=== PATIENT | female | born 1940 | race Two or more races ===

== ENCOUNTER 2018-09-14 16:18 | Inpatient (IN) | payer MEDICARE, BC ==
[~2018-09-14] VITALS: Ht 152.4 cm; Wt 59.8 kg
--- NOTE | 2018-09-14 16:32 | NUR ---
DR AGUILAR AT BEDSIDE TO [facility] PT. 78 YR OLD FEMALE BROUGHT IN BY EMS WITH C/O 3 WEEK HX OF DECREASED APPETITE. OVER THE LAST 3 DAYS NOT EATING MUCH, FEELS LIKE GOING TO THROW UP, DIARRHEA AND FEELING WEAK. PER REPORT, PT WAS HYPOTENSIVE 80'S/60'S. PT RECEIVED 500 CC NS BOLUS WITH BP INC TO 118/78. BS 134. PT ARRIVED WITH 20G IN LAC.
--- NOTE | 2018-09-14 16:56 | NUR ---
report to [facility]
[2018-09-14 17:12] LABS: BASOPHILS # (AUTO) 0.01 x10^3/uL (0-0.1); BASOPHILS % (AUTO) 0 % (0-1); EOSINOPHILS # (AUTO) 0.02 x10^3/uL (0-0.4); EOSINOPHILS % (AUTO) 0 % (1-7); LYMPHOCYTES # (AUTO) 2.08 x10^3/uL (1-3.4); LYMPHOCYTES % (AUTO) 27 % (22-44); MD NO; MEAN CORPUSCULAR HEMOGLOBIN 29.6 pg (27.0-34.8); MEAN CORPUSCULAR HGB CONC 34.1 g/dL (32.4-35.8); MEAN CORPUSCULAR VOLUME 86.8 fL (80-100); MEAN PLATELET VOLUME 8.3 fL (7.4-10.4); MONOCYTES # (AUTO) 0.53 x10^3/uL (0.2-0.8); MONOCYTES % (AUTO) 7 % (2-9); NEUTROPHILS # (AUTO) 4.98 x10^3/uL (1.8-6.8); NEUTROPHILS % (AUTO) 65 % (42-75); PLATELET COUNT 249 x10^3/uL (130-400); RED BLOOD COUNT 4.17 x10^6/uL (3.82-5.3); RED CELL DISTRIBUTION WIDTH 13.8 % (9.6-15.2)
--- NOTE | 2018-09-14 17:20 | NUR ---
ORTHOSTATIC VITALS TAKEN. POSTIVE ORTHOSTATICS. AWARE.
[2018-09-14 17:21] LABS: INTERNATIONAL NORMALIZED RATIO 1.09 (0.93-1.1); PROTHROMBIN TIME 11.5 Seconds (9.6-11.5)
[2018-09-14 17:23] LABS: ALANINE AMINOTRANSFERASE 14 U/L (12-78); ALBUMIN 3.5 g/dL (3.4-5.0); ANION GAP 10 mmol/L (5-15); CALCIUM 8.2 mg/dL (8.5-10.1); CHLORIDE 112 mmol/L (98-107); CREATININE 2.53 mg/dL (0.55-1.02)
[2018-09-14] MEDS ORDERED: SODIUM CHLORIDE 0.9%, 500ML IVBOLUS ONE (17:30)
[2018-09-14 17:32] LABS: ALKALINE PHOSPHATASE 115 U/L (45-117); BILIRUBIN,TOTAL 0.5 mg/dL (0.2-1.0); TOTAL PROTEIN 7.4 g/dL (6.4-8.2)
[2018-09-14] MEDS ORDERED: ASPI-496 PO (17:45)
[2018-09-14] MEDS ORDERED: METFORMIN (17:45)
[2018-09-14] MEDS ORDERED: GABAPENTIN (17:45)
[2018-09-14] MEDS ORDERED: CELEBREX (17:45)
[2018-09-14] MEDS ORDERED: TYLENOL (17:45)
[2018-09-14] MEDS ORDERED: ROVASTATIN (17:45)
[2018-09-14 17:46] LABS: FREE T4 (FREE THYROXINE) 1.17 ng/dL (0.76-1.46)
[2018-09-14 18:24] LABS: TROPONIN I 0.124 ng/mL (0.000-0.045)
[2018-09-14] MEDS ORDERED: ASPIRIN 81 MG TABLET CHEW PO ONE (18:30)
--- NOTE | 2018-09-14 18:47 | NUR ---
PT IN BED WITH EYES CLOSED. RESP EVEN AND UNLABORED. ADMITTING MD ALREADY IN ROOM. AWAITING ROOM AT THIS TIME.
[2018-09-14] MEDS ORDERED: POLYETHYLENE GLYCOL 17 GM PACKET PO PRN (19:00)
[2018-09-14] MEDS ORDERED: morphine SULFATE 10 MG/ML, 1ML IVPush PRN (19:00)
[2018-09-14] MEDS ORDERED: NITROGLYCERIN 0.4 MG BOTTLE (25 TABS) SL PRN (19:00)
[2018-09-14] MEDS ORDERED: BISACODYL 10 MG SUPP PR PRN (19:00)
[2018-09-14 19:27] LABS: HEMOGLOBIN A1C 8.3 % (4.2-6.3)
[2018-09-14 20:13] VITALS: BP_SYST 119; BP_SYST 138; BP_SYST 96; BP_DIAS 60; BP_DIAS 69; BP_DIAS 72
[2018-09-14] MEDS: SODIUM CHLORIDE 0.9% 1,000 ML IV SCH (21:55)
[2018-09-14] MEDS: HEPARIN 5,000 UNITS/ML, 1ML SQ SCH (21:56)
[2018-09-14 22:40] LABS: CLOSTRIDIUM DIFFICILE ANTIGEN NEGATIVE; CLOSTRIDIUM DIFFICILE TOXIN NEGATIVE (Negative)
[2018-09-15 01:07] LABS: TROPONIN I 0.138 ng/mL (0.000-0.045)
[2018-09-15 01:55] VITALS: BP 112/62
[2018-09-15] MEDS: ASPIRIN 81 MG TABLET EC PO SCH (05:42)
[2018-09-15] MEDS: SODIUM CHLORIDE 0.9% 1,000 ML IV SCH ×3 (05:42→21:46)
[2018-09-15] MEDS: HEPARIN 5,000 UNITS/ML, 1ML SQ SCH ×3 (05:43→21:47)
[2018-09-15 06:53] VITALS: BP 112/65
[2018-09-15 07:02] LABS: BASOPHILS # (AUTO) 0.01 x10^3/uL (0-0.1); BASOPHILS % (AUTO) 0 % (0-1); EOSINOPHILS # (AUTO) 0.04 x10^3/uL (0-0.4); EOSINOPHILS % (AUTO) 1 % (1-7); LYMPHOCYTES # (AUTO) 1.82 x10^3/uL (1-3.4); LYMPHOCYTES % (AUTO) 27 % (22-44); MD NO; MEAN CORPUSCULAR HEMOGLOBIN 29.3 pg (27.0-34.8); MEAN CORPUSCULAR HGB CONC 33.6 g/dL (32.4-35.8); MEAN CORPUSCULAR VOLUME 87.1 fL (80-100); MEAN PLATELET VOLUME 8.5 fL (7.4-10.4); MONOCYTES # (AUTO) 0.43 x10^3/uL (0.2-0.8); MONOCYTES % (AUTO) 7 % (2-9); NEUTROPHILS # (AUTO) 4.34 x10^3/uL (1.8-6.8); NEUTROPHILS % (AUTO) 65 % (42-75); PLATELET COUNT 213 x10^3/uL (130-400); RED BLOOD COUNT 3.76 x10^6/uL (3.82-5.3); RED CELL DISTRIBUTION WIDTH 14.1 % (9.6-15.2)
[2018-09-15 07:11] LABS: ALANINE AMINOTRANSFERASE 11 U/L (12-78); ALBUMIN 2.9 g/dL (3.4-5.0); CALCIUM 7.6 mg/dL (8.5-10.1); CHOLESTEROL, TOTAL 93 mg/dL (140-239); CREATININE 2.28 mg/dL (0.55-1.02)
[2018-09-15 07:16] LABS: ALKALINE PHOSPHATASE 98 U/L (45-117); ANION GAP 9 mmol/L (5-15); BILIRUBIN,TOTAL 0.4 mg/dL (0.2-1.0); HDL CHOL % 33 % (28-40); HDL CHOLESTEROL (DIRECT) 31 mg/dL (40-60); LDL CHOLESTEROL,CALCULATED 20 mg/dL (54-169); LDL/HDL RATIO 0.6 (0.5-3.0); TOTAL PROTEIN 6.3 g/dL (6.4-8.2); TRIGLYCERIDES 210 mg/dL (50-200); TROPONIN I 0.126 ng/mL (0.000-0.045); VLDL CHOLESTEROL 42 mg/dL (0-25)
[2018-09-15 07:17] LABS: CHLORIDE 118 mmol/L (98-107)
[2018-09-15] MEDS: SENNA/DOCUSATE TABLET PO SCH (08:29)
[2018-09-15] MEDS ORDERED: HYDROcodone/APAP 5/325 TABLET ONE (11:57)
[2018-09-15] MEDS: HYDROcodone/APAP 5/325 TABLET PO PRN ×2 (11:58→18:44)
[2018-09-15 12:07] LABS: CHLORIDE,URINE RANDOM 122 mmol/L; POTASSIUM,URINE RANDOM 18 mmol/L; SODIUM,URINE RANDOM 103 mmol/L
[2018-09-15 12:12] LABS: MICROSCOPIC AUTO
[2018-09-15 12:13] LABS: CULTURE INDICATED? NO
[2018-09-15 12:20] VITALS: BP 134/74
[2018-09-15] MEDS ORDERED: DIPHENOXYLATE/ATROPINE TABLET PO ONE (16:30)
[2018-09-15 18:31] VITALS: BP 146/70
[2018-09-16 00:26] VITALS: BP 129/61
[2018-09-16] MEDS: ONDANSETRON ODT 4 MG PO PRN (04:27)
[2018-09-16 05:36] LABS: BASOPHILS % (AUTO) 0 % (0-1); EOSINOPHILS # (AUTO) 0.04 x10^3/uL (0-0.4); EOSINOPHILS % (AUTO) 1 % (1-7); LYMPHOCYTES # (AUTO) 1.25 x10^3/uL (1-3.4); LYMPHOCYTES % (AUTO) 17 % (22-44); MD NO; MEAN CORPUSCULAR HEMOGLOBIN 29.3 pg (27.0-34.8); MEAN CORPUSCULAR HGB CONC 33.5 g/dL (32.4-35.8); MEAN CORPUSCULAR VOLUME 87.4 fL (80-100); MEAN PLATELET VOLUME 8.8 fL (7.4-10.4); MONOCYTES # (AUTO) 0.45 x10^3/uL (0.2-0.8); MONOCYTES % (AUTO) 6 % (2-9); NEUTROPHILS # (AUTO) 5.55 x10^3/uL (1.8-6.8); NEUTROPHILS % (AUTO) 76 % (42-75); PLATELET COUNT 178 x10^3/uL (130-400); RED BLOOD COUNT 3.57 x10^6/uL (3.82-5.3); RED CELL DISTRIBUTION WIDTH 13.8 % (9.6-15.2)
[2018-09-16] MEDS: HEPARIN 5,000 UNITS/ML, 1ML SQ SCH ×2 (05:36→21:11)
[2018-09-16] MEDS: LEVOTHYROXINE 25 MCG TABLET PO SCH (05:36)
[2018-09-16] MEDS: ASPIRIN 81 MG TABLET EC PO SCH (05:36)
[2018-09-16] MEDS: METOPROLOL SUCCINATE 50 MG TAB.ER.24H PO SCH (05:37)
[2018-09-16] MEDS: SODIUM CHLORIDE 0.9% 1,000 ML IV SCH (05:44)
[2018-09-16 05:45] LABS: ANION GAP 8 mmol/L (5-15); CALCIUM 7.7 mg/dL (8.5-10.1); CHLORIDE 122 mmol/L (98-107); CREATININE 1.85 mg/dL (0.55-1.02)
[2018-09-16] MEDS ORDERED: METOPROLOL SUCCINATE 50 MG TAB.ER.24H PO SCH (06:00)
[2018-09-16 07:13] VITALS: BP 144/67
[2018-09-16] MEDS ORDERED: REGADENOSON 0.4 MG/5 ML SYRINGE ONE (08:09)
[2018-09-16] MEDS: SENNA/DOCUSATE TABLET PO SCH (10:01)
[2018-09-16] MEDS: ACETAMINOPHEN 325 MG TABLET PO PRN ×2 (11:09→21:12)
[2018-09-16 12:39] VITALS: BP 104/61
[2018-09-16] MEDS: SODIUM BICARBONATE 8.4% 100 MEQ in DEXTROSE 5% 1,000 ML IV SCH (16:06)
[2018-09-16 19:25] VITALS: BP 106/65
[2018-09-17 02:57] VITALS: BP 114/66
[2018-09-17] MEDS: SODIUM BICARBONATE 8.4% 100 MEQ in DEXTROSE 5% 1,000 ML IV SCH ×2 (02:57→15:09)
[2018-09-17] MEDS: ASPIRIN 81 MG TABLET EC PO SCH (05:11)
[2018-09-17] MEDS: ACETAMINOPHEN 325 MG TABLET PO PRN ×2 (05:11→20:32)
[2018-09-17] MEDS: LEVOTHYROXINE 25 MCG TABLET PO SCH (05:15)
[2018-09-17 06:02] VITALS: BP_SYST 120; BP_SYST 94; BP_DIAS 57; BP_DIAS 66
[2018-09-17 06:05] LABS: ALBUMIN 2.7 g/dL (3.4-5.0); ANION GAP 10 mmol/L (5-15); CALCIUM 7.5 mg/dL (8.5-10.1); CHLORIDE 111 mmol/L (98-107)
[2018-09-17 06:06] LABS: CREATININE 1.47 mg/dL (0.55-1.02)
[2018-09-17 07:38] VITALS: BP_SYST 136; BP_SYST 78; BP_DIAS 54; BP_DIAS 68
[2018-09-17] MEDS ORDERED: MAGNESIUM SULFATE PMX 2GM/50ML 50 ML IV ONE (08:30)
[2018-09-17] MEDS: HEPARIN 5,000 UNITS/ML, 1ML SQ SCH ×2 (09:00→21:00)
[2018-09-17] MEDS: POTASSIUM CHLORIDE 20 MEQ TAB.ER.PRT PO SCH ×2 (10:35→16:53)
[2018-09-17] MEDS: SENNA/DOCUSATE TABLET PO SCH (10:35)
[2018-09-17] MEDS: METOPROLOL SUCCINATE 50 MG TAB.ER.24H PO SCH (10:35)
--- NOTE | 2018-09-17 13:12 | NUR ---
REC: ADVANCE TO REGULAR DIET TOLERATED Addendum: 09/17/18 at 1312 by María CALDERÓN Amended: Links added.
[2018-09-17] MEDS: ONDANSETRON ODT 4 MG PO PRN ×2 (13:19→20:32)
[2018-09-17 13:29] VITALS: BP 140/77
[2018-09-17 19:29] VITALS: BP_SYST 102; BP_SYST 132; BP_DIAS 61; BP_DIAS 67
[2018-09-17] MEDS ORDERED: ATORVASTATIN 20 MG TABLET PO SCH (21:00)
[2018-09-17 23:58] VITALS: BP 112/54
[2018-09-18] MEDS: ASPIRIN 81 MG TABLET EC PO SCH (05:21)
[2018-09-18] MEDS: ACETAMINOPHEN 325 MG TABLET PO PRN ×2 (05:21→08:49)
[2018-09-18] MEDS: METOPROLOL SUCCINATE 50 MG TAB.ER.24H PO SCH (05:21)
[2018-09-18] MEDS: LEVOTHYROXINE 25 MCG TABLET PO SCH (05:21)
[2018-09-18] MEDS: SODIUM BICARBONATE 8.4% 100 MEQ in DEXTROSE 5% 1,000 ML IV SCH (05:48)
[2018-09-18] MEDS: POTASSIUM CHLORIDE 20 MEQ TAB.ER.PRT PO SCH (08:48)
[2018-09-18] MEDS: SENNA/DOCUSATE TABLET PO SCH (08:48)
[2018-09-18] MEDS: HEPARIN 5,000 UNITS/ML, 1ML SQ SCH (08:49)
[2018-09-18] MEDS: ONDANSETRON ODT 4 MG PO PRN (08:49)
[2018-09-18 08:52] VITALS: BP 127/66
[2018-09-18] MEDS ORDERED: NITR0.4T SL (11:12)
[2018-09-18] MEDS ORDERED: LEVO25TA2 PO (11:12)
[2018-09-18] MEDS ORDERED: METO-93 PO (11:12)
[2018-09-18] MEDS ORDERED: ATOR20TA37 PO (11:12)
== END 2018-09-18 13:00 | disposition home or self-care (01) | DRG 391 ==
LOC: ED 18:24 → EDIP 18:45 → 5SO 20:13 → 3NW 09-17 13:01
PROVIDERS: ADMIT Internal Medicine; ATTEND Hospitalist
PROC: BD11YZZ Fluoroscopy of Esophagus using Other Contrast (ICD-10-PCS; principal; 2018-09-16)
DX: K21.9 Gastro-esophageal reflux disease without esophagitis (principal); N17.0 Acute kidney failure with tubular necrosis; E44.0 Moderate protein-calorie malnutrition; E87.2 Acidosis; I25.10 Atherosclerotic heart disease of native coronary artery without angina pectoris; R74.8 Abnormal levels of other serum enzymes; N18.9 Chronic kidney disease, unspecified; E11.22 Type 2 diabetes mellitus with diabetic chronic kidney disease; I95.9 Hypotension, unspecified; E86.0 Dehydration; E89.0 Postprocedural hypothyroidism; G89.4 Chronic pain syndrome; I65.22 Occlusion and stenosis of left carotid artery; I70.0 Atherosclerosis of aorta; I70.8 Atherosclerosis of other arteries; E78.5 Hyperlipidemia, unspecified; Z60.2 Problems related to living alone; I77.1 Stricture of artery; Z68.25 Body mass index [BMI] 25.0-25.9, adult; Z82.49 Family history of ischemic heart disease and other diseases of the circulatory system; Z86.79 Personal history of other diseases of the circulatory system; Z87.891 Personal history of nicotine dependence; Z90.710 Acquired absence of both cervix and uterus; Z95.1 Presence of aortocoronary bypass graft; Z90.49 Acquired absence of other specified parts of digestive tract; Z80.42 Family history of malignant neoplasm of prostate; Z88.2 Allergy status to sulfonamides; Z88.1 Allergy status to other antibiotic agents
CPT/HCPCS: 36415; 71045; 71250; 74220; 78452; 80048; 80053; 80061; 81001; 82040; 82436; 82570; 83036; 83605; 83735; 84100; 84133; 84145; 84300; 84439; 84443; 84484; 85025; 85610; 85730; 87324; 93005; 93017; 93306; 93880; 96360; 99291; G0378; J1644; J2785; J7070; Q0162; 92523-GN; A9502; C9898; J3475; J7030; J7040

== ENCOUNTER 2019-02-17 23:49 | Inpatient (IN) | payer MEDICARE, OTHER ==
[~2019-02-17] VITALS: Ht 149.9 cm; Wt 55.0 kg
[~2019-02-17 23:49] MED LIST: ASPI-496 PO; ATOR20TA37 PO; CELEBREX; GABAPENTIN; LEVO25TA2 PO; METFORMIN; METO-93 PO; NITR0.4T41 SL; ROVASTATIN; TYLENOL
--- NOTE | 2019-02-17 23:58 | NUR ---
BIB [facility] FOR C/O DIARRHEA X 3 WEEKS. DIZZINESSS/WEAKNESS X 3 DAYS. PT. DID HAVE LOW B/P FOR EMS. IV ESTABLISHED AND 250ML OF NS ADMIN EN ROUTE. FSBS 125 BY EMS. PT. HAD EKG DONE ON ARRIVAL. CONTINUOUS PULSE OX, HR, AND B/P MONITORS PLACED. CALL LIGHT IN REACH.
--- NOTE | 2019-02-18 00:12 | NUR ---
PT. TO CT VIA [facility].
[2019-02-18 00:22] LABS: BASOPHILS # (AUTO) 0.01 x10^3/uL (0-0.1); BASOPHILS % (AUTO) 0 % (0-1); EOSINOPHILS # (AUTO) 0.04 x10^3/uL (0-0.4); EOSINOPHILS % (AUTO) 1 % (1-7); LYMPHOCYTES # (AUTO) 1.84 x10^3/uL (1-3.4); LYMPHOCYTES % (AUTO) 28 % (22-44); MD NO; MEAN CORPUSCULAR HEMOGLOBIN 29.2 pg (27.0-34.8); MEAN CORPUSCULAR HGB CONC 32.7 g/dL (32.4-35.8); MEAN CORPUSCULAR VOLUME 89.3 fL (80-100); MEAN PLATELET VOLUME 8.5 fL (7.4-10.4); MONOCYTES # (AUTO) 0.39 x10^3/uL (0.2-0.8); MONOCYTES % (AUTO) 6 % (2-9); NEUTROPHILS % (AUTO) 65 % (42-75); PLATELET COUNT 180 x10^3/uL (130-400); RED BLOOD COUNT 3.82 x10^6/uL (3.82-5.3); RED CELL DISTRIBUTION WIDTH 14.7 % (9.6-15.2)
--- NOTE | 2019-02-18 00:27 | NUR ---
PT. WAS GOING TO GO TO CT BUT ORDER WAS CHANGED. CT WAITING FOR LABS PRIOR TO CT. PT. RESTING ON GURNEY WITH NADN. ALL SAFETY MEASURES OBSERVED.
[2019-02-18 00:35] LABS: ALANINE AMINOTRANSFERASE 16 U/L (12-78); ALBUMIN 3.1 g/dL (3.4-5.0); ANION GAP 11 mmol/L (5-15); CALCIUM 7.8 mg/dL (8.5-10.1); CHLORIDE 116 mmol/L (98-107); CREATININE 1.73 mg/dL (0.55-1.02)
[2019-02-18 00:39] LABS: ALKALINE PHOSPHATASE 84 U/L (45-117); BILIRUBIN,TOTAL 0.2 mg/dL (0.2-1.0); TOTAL PROTEIN 6.6 g/dL (6.4-8.2)
[2019-02-18 00:41] LABS: TROPONIN I 0.122 ng/mL (0.000-0.045)
[2019-02-18] MEDS ORDERED: ASPIRIN 325 MG TABLET PO STA (00:42)
--- NOTE | 2019-02-18 00:54 | NUR ---
TASK RN: PT TO CT
--- NOTE | 2019-02-18 01:07 | NUR ---
PT. OUT OF ROOM FOR CT. RECEIVED REPORT BACK FROM ELSIE LINDQUIST RN.
[2019-02-18] MEDS ORDERED: ASPIRIN 81 MG TABLET CHEW PO STA (01:25)
--- NOTE | 2019-02-18 01:27 | NUR ---
DR. LEIJA AT TO DISCUSS POC WITH PT.
[2019-02-18] MEDS ORDERED: SODIUM CHLORIDE 0.9% 1,000ML IVBOLUS ONE (01:30)
[2019-02-18] MEDS ORDERED: ASPIRIN 81 MG TABLET CHEW ONE (01:33)
[2019-02-18] MEDS ORDERED: MECLIZINE CHEWABLE 25 MG TAB ONE (01:38)
--- NOTE | 2019-02-18 01:40 | NUR ---
PT. MEDICATED PER NOV AND PROVIDED WITH WATER AFTER OK FROM DR. LEIJA.
[2019-02-18] MEDS ORDERED: MECLIZINE CHEWABLE 25 MG TAB PO ONE (02:00)
[2019-02-18] MEDS ORDERED: METF1000 PO (02:05)
[2019-02-18] MEDS ORDERED: ROSU40TA PO (02:05)
[2019-02-18] MEDS ORDERED: GABA300C10 PO ×2 (02:05→02:06)
[2019-02-18] MEDS ORDERED: OMEP-110 PO (02:05)
--- NOTE | 2019-02-18 02:22 | NUR ---
REPORT TO HILARY CARRIZALES. FLOOR READY FOR PT. TRANSPORT.
[2019-02-18] MEDS ORDERED: MECLIZINE CHEWABLE 25 MG TAB PO PRN (02:30)
[2019-02-18] MEDS ORDERED: ONDANSETRON 2MG/ML, 2ML IVPush PRN (02:30)
[2019-02-18 03:15] VITALS: BP 109/62
[2019-02-18 05:52] LABS: TROPONIN I 0.124 ng/mL (0.000-0.045)
[2019-02-18 09:09] VITALS: BP 126/61
[2019-02-18] MEDS: ASPIRIN 81 MG TABLET EC PO SCH (10:23)
[2019-02-18] MEDS ORDERED: SPIR25TA5 PO (12:09)
[2019-02-18] MEDS ORDERED: GABA600T7 PO (12:09)
[2019-02-18] MEDS: INSULIN LISPRO 100 UNITS/ML, PEN SQ-INSULIN SCH ×3 (12:16→20:27)
[2019-02-18 14:14] VITALS: BP 125/49
[2019-02-18] MEDS: GABAPENTIN 300 MG CAPSULE PO SCH ×2 (16:31→20:27)
[2019-02-18 19:13] VITALS: BP 99/62
[2019-02-18] MEDS: ATORVASTATIN 80 MG TABLET PO SCH (20:27)
[2019-02-18] MEDS: TEMAZEPAM 15 MG CAPSULE PO PRN (20:27)
[2019-02-19 00:49] VITALS: BP 112/56
[2019-02-19] MEDS: ASPIRIN 81 MG TABLET EC PO SCH (05:02)
[2019-02-19] MEDS: LEVOTHYROXINE 25 MCG TABLET PO SCH (05:02)
[2019-02-19 05:50] LABS: BASOPHILS # (AUTO) 0.01 x10^3/uL (0-0.1); BASOPHILS % (AUTO) 0 % (0-1); EOSINOPHILS # (AUTO) 0.12 x10^3/uL (0-0.4); EOSINOPHILS % (AUTO) 2 % (1-7); LYMPHOCYTES % (AUTO) 35 % (22-44); MD NO; MEAN CORPUSCULAR HEMOGLOBIN 28.6 pg (27.0-34.8); MEAN CORPUSCULAR HGB CONC 32.4 g/dL (32.4-35.8); MEAN CORPUSCULAR VOLUME 88.4 fL (80-100); MEAN PLATELET VOLUME 8.2 fL (7.4-10.4); MONOCYTES # (AUTO) 0.36 x10^3/uL (0.2-0.8); MONOCYTES % (AUTO) 6 % (2-9); NEUTROPHILS # (AUTO) 3.26 x10^3/uL (1.8-6.8); NEUTROPHILS % (AUTO) 57 % (42-75); PLATELET COUNT 154 x10^3/uL (130-400); RED BLOOD COUNT 3.59 x10^6/uL (3.82-5.3); RED CELL DISTRIBUTION WIDTH 14.6 % (9.6-15.2)
[2019-02-19 05:52] LABS: CALCIUM 8.1 mg/dL (8.5-10.1); CHLORIDE 115 mmol/L (98-107)
[2019-02-19 05:55] LABS: ANION GAP 7 mmol/L (5-15); CREATININE 1.21 mg/dL (0.55-1.02)
[2019-02-19] MEDS: INSULIN LISPRO 100 UNITS/ML, PEN SQ-INSULIN SCH ×4 (07:19→21:22)
[2019-02-19 08:25] VITALS: BP 122/64
[2019-02-19] MEDS: GABAPENTIN 300 MG CAPSULE PO SCH ×3 (09:33→20:57)
[2019-02-19] MEDS: SPIRONOLACTONE 25 MG TABLET PO SCH (12:40)
[2019-02-19 13:00] VITALS: BP 108/57
[2019-02-19 13:03] LABS: CHOL/HDL RATIO 2.4; LDL/HDL RATIO 0.7 (0.5-3.0)
[2019-02-19 19:39] VITALS: BP 114/61
[2019-02-19] MEDS: ATORVASTATIN 80 MG TABLET PO SCH (20:55)
[2019-02-19] MEDS: TEMAZEPAM 15 MG CAPSULE PO PRN (20:55)
[2019-02-20 00:49] VITALS: BP_SYST 124; BP_SYST 96; BP_DIAS 57; BP_DIAS 66
[2019-02-20] MEDS: LEVOTHYROXINE 25 MCG TABLET PO SCH (05:21)
[2019-02-20] MEDS: ASPIRIN 81 MG TABLET EC PO SCH (05:21)
[2019-02-20 08:00] VITALS: BP 115/70
[2019-02-20] MEDS: SPIRONOLACTONE 25 MG TABLET PO SCH (08:04)
[2019-02-20] MEDS: GABAPENTIN 300 MG CAPSULE PO SCH (08:04)
[2019-02-20] MEDS: INSULIN LISPRO 100 UNITS/ML, PEN SQ-INSULIN SCH ×2 (08:04→12:15)
[2019-02-20 14:00] VITALS: BP 106/67
[2019-02-20] MEDS ORDERED: MECL-85 PO (16:07)
[2019-02-20] MEDS ORDERED: CLOP75TA PO (16:07)
[2019-02-21] MEDS ORDERED: CLOPIDOGREL 75 MG TABLET PO SCH (09:00)
== END 2019-02-20 17:39 | disposition home health service (06) | DRG 280 ==
LOC: ED 02-18 01:50 → EDIP 02-18 02:31 → 5SO 02-18 03:14 → DCLOUNGE 02-20 17:10
PROVIDERS: ADMIT Internal Medicine; ATTEND Internal Medicine
DX: I21.4 Non-ST elevation (NSTEMI) myocardial infarction (principal); N17.0 Acute kidney failure with tubular necrosis; I50.30 Unspecified diastolic (congestive) heart failure; E03.9 Hypothyroidism, unspecified; E11.22 Type 2 diabetes mellitus with diabetic chronic kidney disease; E11.41 Type 2 diabetes mellitus with diabetic mononeuropathy; G57.90 Unspecified mononeuropathy of unspecified lower limb; G89.4 Chronic pain syndrome; I25.119 Atherosclerotic heart disease of native coronary artery with unspecified angina pectoris; I71.4 Abdominal aortic aneurysm, without rupture; N18.9 Chronic kidney disease, unspecified; Z79.82 Long term (current) use of aspirin; Z79.890 Hormone replacement therapy; Z80.42 Family history of malignant neoplasm of prostate; Z82.49 Family history of ischemic heart disease and other diseases of the circulatory system; Z86.73 Personal history of transient ischemic attack (TIA), and cerebral infarction without residual deficits; Z86.79 Personal history of other diseases of the circulatory system; Z90.49 Acquired absence of other specified parts of digestive tract; Z90.710 Acquired absence of both cervix and uterus; Z95.1 Presence of aortocoronary bypass graft; Z88.2 Allergy status to sulfonamides; Z88.8 Allergy status to other drugs, medicaments and biological substances
CPT/HCPCS: 36415; 70450; 71045; 80048; 80053; 80061; 82962; 83880; 84484; 85025; 93005; 93306; 93880; 93970; 96360; G0378; J7030